=== PATIENT | female | born 1960 | race Caucasian/White ===

== ENCOUNTER → 2016-07-02 | Outpatient (CLI) | payer BC ==
[~2016-07-02] MED LIST: LASIX20 MG PO; METOPROLOL SUCC25 MG PO; MULTIVITAMIN1 EAC2 PO; TYLENOL EXTRA500 MG PO; VITAMIN B COMP1 EACH PO; VITAMIN D31000 UNIT PO
== END | disposition home or self-care (01) ==
LOC: CDC 11:53
DX: Z01.810 Encounter for preprocedural cardiovascular examination (principal)
CPT/HCPCS: 93000

== ENCOUNTER 2016-07-09 09:27 | Day surgery (SDC) | payer BC ==
[~2016-07-09] VITALS: Ht 160 cm; Wt 72.6 kg
[2016-07-09 10:11] VITALS: BP 138/71
[2016-07-09] MEDS ORDERED: NORCO 5/3251 TABLET PO (11:51)
[2016-07-09] MEDS ORDERED: MOTRIN800 MG PO (11:51)
[2016-07-09 12:55] VITALS: BP 148/80
[2016-07-09 13:50] VITALS: BP 129/75
== END 2016-07-09 14:08 | disposition home or self-care (01) ==
LOC: SDC 09:27
DX: N95.0 Postmenopausal bleeding (principal); R93.8 Abnormal findings on diagnostic imaging of other specified body structures; N84.0 Polyp of corpus uteri; N88.2 Stricture and stenosis of cervix uteri; N85.4 Malposition of uterus; I10 Essential (primary) hypertension; K21.9 Gastro-esophageal reflux disease without esophagitis; E66.3 Overweight; Z68.28 Body mass index [BMI] 28.0-28.9, adult; Z82.5 Family history of asthma and other chronic lower respiratory diseases; Z82.3 Family history of stroke; Z80.0 Family history of malignant neoplasm of digestive organs; Z82.49 Family history of ischemic heart disease and other diseases of the circulatory system; Z83.2 Family history of diseases of the blood and blood-forming organs and certain disorders involving the immune mechanism; Z88.8 Allergy status to other drugs, medicaments and biological substances
CPT/HCPCS: 88305; J1100; J2250; J2405; J3010